=== PATIENT | female | born 1990 | race Caucasian/White ===

== ENCOUNTER → 2019-02-13 | Outpatient (CLI) | payer OTHER ==
--- NOTE | 2019-02-13 16:27 | CONS ---
CONSULTATION REASON FOR CONSULTATION: Difficulty in sleep initiation/insomnia. This is a 28-year-old female patient who moved to [place] approximately 9 months ago. Prior to that the patient used to live in [place]. She has a significant amount of stress and social issues, as the patient is currently and she has 2 kids left behind in [place], and she has currently moved in with another individual here in [place]. This has caused increased stress, anxiety and some degree of depression. For that reason, the patient is currently being seen at [facility] by Dr. Rupinder Berry. The patient was initially treated with BuSpar, and later the patient was switched to Paxil at a dose of 40 mg p.o. daily, and she is taking Vistaril. She has also CHRONIC ALLERGIES, for which she is on a combination of Claritin and Flonase. Over this past year or so the patient has been having more difficulty in sleep initiation. It takes her sometimes more than one hour to fall asleep. She goes to bed around 3 a.m. and she gets out of bed sometime between 8 and 1 p.m. Upon further questioning, the patient has significant variation in her sleep schedule. I came to find out that the patient works in a local Level in [place]. On Tuesday she goes to work at 6 p.m. and she gets out of work at 3 a.m. On regular days she works between 5 p.m. and 11 p.m. On regular days after she comes back home she does not fall asleep right away. She goes to bed late and it takes her sometimes up to an hour or so to fall asleep. Once asleep, she goes into a deep sleep and she has occasional sleepwalking and sleeptalking. She has also some occasional intercourse with her boyfriend in the middle of night, of which she has no recollection. Upon getting at 8:00, she feels very tired and sleepy and she will take more sleep; sometimes she will get up from bed at around 1 p.m. During the day she has problems with memory and concentration and feeling tired and fatigued and sleepy all the time. She is not sure if she has snoring; she has never been told that she snores. She occasionally grinds her teeth. She has increased panic, anxiety, stress and depression, as mentioned. No suicidal ideation. She averages from 4 hours up to 12 hours of sleep, depending on the day. Her current [place] score is 2. No substance abuse. She smokes weed, which she claims helps her to go to sleep. She smokes cigarettes. No alcoholism. No substance abuse. No headaches. No trauma to the head. No meningitis. No sleep paralysis. No hallucinations. She does have vivid dreams. No reported cataplexy. No weight gain or weight loss. PAST MEDICAL HISTORY: 1. Chronic anxiety/depression. 2. ENVIRONMENTAL ALLERGIES. PAST SURGICAL HISTORY: Negative. DRUG ALLERGIES: NOT KNOWN. She is ALLERGIC TO DUST MITES. OUTPATIENT MEDICATION: Outpatient medication list includes: 1. Paxil. 2. Vistaril. 3. Claritin. 4. Flonase. SOCIAL HISTORY: She smokes cigarettes and marijuana. She drinks alcohol socially. She works in a bar. No alcoholism. No substance abuse in the form of IVDA. FAMILY HISTORY: Negative for any form of sleep breathing disorder. REVIEW OF SYSTEMS: Fourteen-point review of systems was done. Positive findings were all mentioned above in the history of present illness. No symptoms of restlessness in the lower extremities. No nocturnal chest pain, shortness of breath or heartburn. No claustrophobia. No snoring. No waking up in the middle of night choking or gasping for air. No nocturia. The rest of the positive findings are mentioned above in the history of present illness. PHYSICAL EXAMINATION: VITAL SIGNS: BP is 115/58, pulse 74, respirations 16, temperature 98.3, saturation 98% on room air. Height is 5 feet 4 inches, weight 115 and BMI is 19.4. Neck size is 12 inches. GENERAL APPEARANCE: Calm, comfortable. HEAD: Atraumatic, normocephalic. NECK: Supple. There is no JVD. No goiter or neck masses. LUNGS: Clear to auscultation. HEART: Heart sounds are regular rate and rhythm. Normal S1, S2. No S3, S4. No murmurs. ABDOMEN: Soft, nontender. No organomegaly. EXTREMITIES: No edema. No cyanosis or clubbing. NEUROLOGIC: She is alert and oriented x3. No focal neurological deficits. PSYCHIATRIC: Positive for anxiety and depression. IMPRESSION: 1. Sleep-onset insomnia. It is clear to me that the patient's sleep problems are essentially related to her poor sleep hygiene pattern. She has a very erratic and irregular sleep schedule where she goes to bed at various times and she gets up between 8 a.m. and 1 p.m. Obviously her sleep hygiene measures are poor. She has an irregular sleep schedule. In addition, she has other comorbidities which have contributed to her sleepiness and insomnia which include anxiety/depression in addition to a significant amount of stress from psychosocial factors. Doubt sleep apnea. Doubt restless legs syndrome. She does have some occasional sleepwalking and -talking, probably exacerbated by the intake of SSRIs. 2. Chronic fatigue. 3. No major sleepiness. [place] score is 2. 4. Chronic anxiety. 5. Chronic depression. 6. ENVIRONMENTAL ALLERGIES. 7. Smoking marijuana and tobacco. PLAN: Discussed importance of maintaining good sleep hygiene measures. I note that the patient is working in a bar and she has a difficult schedule. During the weekdays she has to go to bed at a standard fixed time, which should be midnight, and she has to get up at 7 a.m. in the morning. I asked her to set an alarm which allows her to wake herself up in the morning. She should avoid taking any naps during the day. Obviously avoiding alcohol or any other form of [employer] stimulants such as caffeine or caffeinated products should be avoided. Avoid late dinner. She is already seeing a counselor and at same time she is seeing [facility] and she is being followed by Dr. Rupinder Berry regarding her chronic anxiety and depression. I think ultimately the choice of Paxil is exacerbating her sleepwalking and possibly some of her symptoms of sleeptalking. I am going to suggest possibly replacing this with another agent such as Wellbutrin, which may give her some increased energy and stimulation during the day. Xanax may also be used on an as-needed basis since her anxiety levels are quite high, and this may be a sleep-promoting agent. I will leave the final decision for medication adjustment to her psychiatrist. These are my suggestions for now. I counseled this patient regarding her sleep hygiene and her sleep schedule. I am going to see her in the future for followup. MMETHAN / LATANYAN: [phone] /
== END | disposition home or self-care (01) ==
LOC: SLEEP 14:06
PROVIDERS: ATTEND Internal Medicine Critical Care Medicine
DX: G47.00 Insomnia, unspecified (principal); F51.3 Sleepwalking [somnambulism]; F17.210 Nicotine dependence, cigarettes, uncomplicated; F41.9 Anxiety disorder, unspecified; F32.9 Major depressive disorder, single episode, unspecified; F12.90 Cannabis use, unspecified, uncomplicated; R53.83 Other fatigue
CPT/HCPCS: 99211

== ENCOUNTER 2021-05-28 09:35 | Emergency (ER) | payer OTHER ==
[2021-05-28 09:43] VITALS: RESP 18
[2021-05-28] MEDS ORDERED: SODIUM CHLORIDE 0.9% 2,000 ML IV STA (09:58)
[2021-05-28] MEDS ORDERED: ONDANSETRON 4 MG/2 ML VIAL IVP STA (09:58)
[2021-05-28 10:15] LABS: Basophils % (A) 0 %; Eosinophils # (A) 0.1 k/uL (0-0.7); Eosinophils % (A) 1 %; HCT 41.9 % (34.0-46.0); HGB 13.9 gm/dL (11.4-16.0); Lymphocytes # (A) 1.3 k/uL (1.0-4.8); Lymphocytes % (A) 15 %; MCH 31.3 pg (25.0-35.0); MCHC 33.2 g/dL (31.0-37.0); MCV 94.4 fL (80.0-100.0); Mean Platelet Volume 8.3; Monocytes # (A) 0.4 k/uL (0-1.0); Monocytes % (A) 4 %; Neutrophils # (A) 6.7 k/uL (1.3-7.7); Neutrophils % (A) 78 %; Platelet Count 253 k/uL (150-450); RBC 4.44 m/uL (3.80-5.40); RDW 13.1 % (11.5-15.5); WBC 8.6 k/uL (3.8-10.6)
[2021-05-28 10:24] LABS: ALT 13 U/L (4-34); AST 23 U/L (14-36); African American GFR (CKD) >90 (>60 ml/min/1.73 sqM); Albumin 4.9 g/dL (3.5-5.0); Alkaline Phosphatase 61 U/L (38-126); Amylase 154 U/L (30-110); Anion Gap 9 mmol/L; Blood Urea Nitrogen 10 mg/dL (7-17); Calcium 9.4 mg/dL (8.4-10.2); Carbon Dioxide 22 mmol/L (22-30); Chloride 106 mmol/L (98-107); Glucose 99 mg/dL (74-99); Lipase 288 U/L (23-300); Non-African American GFR(CKD) >90 (>60 ml/min/1.73 sqM); Potassium 4.2 mmol/L (3.5-5.1); Sodium 137 mmol/L (137-145); Total Bilirubin 0.9 mg/dL (0.2-1.3); Total Protein 8.1 g/dL (6.3-8.2)
--- NOTE | 2021-05-28 10:27 | ED ---
Nausea/Vomiting/Diarrhea HPI - General Chief complaint: Nausea/Vomiting/Diarrhea Stated complaint: Nausea, Dehydration Time Seen by Provider: 05/28/21 09:43 Source: patient, RN notes reviewed Mode of arrival: ambulatory Limitations: no limitations - History of Present Illness Initial comments: 31-year-old female presents emergency Department with chief complaint of nausea vomiting recent covid 19 dehydration. Patient states she is 11 days out of COVID-19. Patient states she feels very dehydrated, increasing nausea, decreased oral intake. She reports no fevers or chills currently mild residual cough no recent bodyaches no localized abdominal pain. - Related Data Home Medications Medication Instructions Recorded Confirmed QUEtiapine FUMARATE [SEROquel XR] 150 mg PO HS 05/28/21 05/28/21 Venlafaxine HCl [Effexor XR] 150 mg PO DAILY 05/28/21 05/28/21 guanFACINE HCL [guanFACINE HCL ER] 1 mg PO DAILY 05/28/21 05/28/21 hydrOXYzine pamoate [Vistaril] 50 mg PO QID PRN 05/28/21 05/28/21 Previous Rx's Medication Instructions Recorded Ondansetron Odt [Zofran Odt] 4 mg PO Q8HR PRN #10 tab 05/28/21 Allergies Allergy/AdvReac Type Severity Reaction Status Date / Time cephalexin [From Keflex] Allergy Rash/Hives Verified 05/28/21 10:40 sulfamethoxazole Allergy Rash/Hives Verified 05/28/21 10:40 [From Bactrim] trimethoprim [From Bactrim] Allergy Rash/Hives Verified 05/28/21 10:40 Review of Systems ROS Statement: Those systems with pertinent positive or pertinent negative responses have been documented in the HPI. ROS Other: All systems not noted in ROS Statement are negative. Past Medical History Past Medical History: No Reported History History of Any Multi-Drug Resistant Organisms: None Reported Additional Past Surgical History / Comment(s): B carpal tunnel sx, oral sx Past Psychological History: Anxiety, Bipolar, Depression, PTSD Smoking Status: Former smoker Past Alcohol Use History: Occasional Past Drug Use History: Marijuana General Exam Limitations: no limitations General appearance: alert, in no apparent distress Head exam: Present: atraumatic, normocephalic, normal inspection Eye exam: Present: normal appearance, PERRL, EOMI. Absent: scleral icterus, conjunctival injection, periorbital swelling ENT exam: Present: normal exam, normal oropharynx, mucous membranes moist Neck exam: Present: normal inspection, full ROM. Absent: tenderness, meningismus, lymphadenopathy Respiratory exam: Present: normal lung sounds bilaterally. Absent: respiratory distress, wheezes, rales, rhonchi, stridor Cardiovascular Exam: Present: regular rate, normal rhythm, normal heart sounds. Absent: systolic murmur, diastolic murmur, rubs, gallop, clicks GI/Abdominal exam: Present: soft, normal bowel sounds. Absent: distended, tenderness, guarding, rebound, rigid Course Vital Signs 05/28/21 09:39 Temperature 98 F Pulse Rate 102 H Respiratory 18 Rate Blood Pressure 106/68 O2 Sat by Pulse 98 Oximetry Medical Decision Making - Medical Decision Making Patient presented for dehydration with COVID-19. Patient was hydrated, given antiemetics is greatly improved be discharged stable condition - Lab Data Result diagrams: 05/28/21 10:00 05/28/21 10:00 Lab Results 05/28/21 05/28/21 05/28/21 Range/Units 10:00 10:00 10:57 WBC 8.6 (3.8-10.6) k/uL RBC 4.44 (3.80-5.40) m/uL Hgb 13.9 (11.4-16.0) gm/dL Hct 41.9 (34.0-46.0) % MCV 94.4 (80.0-100.0) fL MCH 31.3 (25.0-35.0) pg MCHC 33.2 (31.0-37.0) g/dL RDW 13.1 (11.5-15.5) % Plt Count 253 (150-450) k/uL MPV 8.3 Neutrophils % 78 % Lymphocytes % 15 % Monocytes % 4 % Eosinophils % 1 % Basophils % 0 % Neutrophils # 6.7 (1.3-7.7) k/uL Lymphocytes # 1.3 (1.0-4.8) k/uL Monocytes # 0.4 (0-1.0) k/uL Eosinophils # 0.1 (0-0.7) k/uL Basophils # 0.0 (0-0.2) k/uL Sodium 137 (137-145) mmol/L Potassium 4.2 (3.5-5.1) mmol/L Chloride 106 (98-107) mmol/L Carbon Dioxide 22 (22-30) mmol/L Anion Gap 9 mmol/L BUN 10 (7-17) mg/dL Creatinine 0.55 (0.52-1.04) mg/dL Est GFR (CKD-EPI)AfAm >90 (>60 ml/min/1.73 sqM) Est GFR (CKD-EPI)NonAf >90 (>60 ml/min/1.73 sqM) Glucose 99 (74-99) mg/dL Calcium 9.4 (8.4-10.2) mg/dL Total Bilirubin 0.9 (0.2-1.3) mg/dL AST 23 (14-36) U/L ALT 13 (4-34) U/L Alkaline Phosphatase 61 (38-126) U/L Total Protein 8.1 (6.3-8.2) g/dL Albumin 4.9 (3.5-5.0) g/dL Amylase 154 H (30-110) U/L Lipase 288 (23-300) U/L Urine Color Yellow Urine Appearance Clear (Clear) Urine pH 7.5 (5.0-8.0) Ur Specific [place] 1.019 (1.001-1.035) Urine Protein 1+ H (Negative) Urine Glucose (UA) Negative (Negative) Urine Ketones Negative (Negative) Urine Blood Negative (Negative) Urine Nitrite Negative (Negative) Urine Bilirubin Negative (Negative) Urine Urobilinogen 2.0 (<2.0) mg/dL Ur Leukocyte Esterase Negative (Negative) Urine WBC 1 (0-5) /hpf Ur Squamous Epith Cells 3 (0-4) /hpf Urine Bacteria Rare H (None) /hpf Urine Mucus Occasional H (None) /hpf Urine HCG, Qual (Not Detectd) 05/28/21 Range/Units 10:57 WBC (3.8-10.6) k/uL RBC (3.80-5.40) m/uL Hgb (11.4-16.0) gm/dL Hct (34.0-46.0) % MCV (80.0-100.0) fL MCH (25.0-35.0) pg MCHC (31.0-37.0) g/dL RDW (11.5-15.5) % Plt Count (150-450) k/uL MPV Neutrophils % % Lymphocytes % % Monocytes % % Eosinophils % % Basophils % % Neutrophils # (1.3-7.7) k/uL Lymphocytes # (1.0-4.8) k/uL Monocytes # (0-1.0) k/uL Eosinophils # (0-0.7) k/uL Basophils # (0-0.2) k/uL Sodium (137-145) mmol/L Potassium (3.5-5.1) mmol/L Chloride (98-107) mmol/L Carbon Dioxide (22-30) mmol/L Anion Gap mmol/L BUN (7-17) mg/dL Creatinine (0.52-1.04) mg/dL Est GFR (CKD-EPI)AfAm (>60 ml/min/1.73 sqM) Est GFR (CKD-EPI)NonAf (>60 ml/min/1.73 sqM) Glucose (74-99) mg/dL Calcium (8.4-10.2) mg/dL Total Bilirubin (0.2-1.3) mg/dL AST (14-36) U/L ALT (4-34) U/L Alkaline Phosphatase (38-126) U/L Total Protein (6.3-8.2) g/dL Albumin (3.5-5.0) g/dL Amylase (30-110) U/L Lipase (23-300) U/L Urine Color Urine Appearance (Clear) Urine pH (5.0-8.0) Ur Specific [place] (1.001-1.035) Urine Protein (Negative) Urine Glucose (UA) (Negative) Urine Ketones (Negative) Urine Blood (Negative) Urine Nitrite (Negative) Urine Bilirubin (Negative) Urine Urobilinogen (<2.0) mg/dL Ur Leukocyte Esterase (Negative) Urine WBC (0-5) /hpf Ur Squamous Epith Cells (0-4) /hpf Urine Bacteria (None) /hpf Urine Mucus (None) /hpf Urine HCG, Qual Not Detected (Not Detectd) Disposition Clinical Impression: Dehydration, COVID-19 Disposition: HOME SELF-CARE Condition: Stable Instructions (If sedation given, give patient instructions): Dehydration (ED) Additional Instructions: Please return to the Emergency Department if symptoms worsen or any other concerns. Prescriptions: Ondansetron Odt [Zofran Odt] 4 mg PO Q8HR PRN #10 tab PRN Reason: Nausea Is patient prescribed a controlled substance at d/c from ED?: No Referrals: Liliana Swanson MD [Primary Care Provider] - 1-2 days Time of Disposition: 12:09
[2021-05-28 11:17] LABS: Appearance,Urine Clear (Clear); Bacteria,Urine Rare /hpf; Bilirubin,Urine Negative (Negative); Blood,Urine Negative (Negative); Color,Urine Yellow; Glucose,Urine (UA) Negative (Negative); Ketones,Urine Negative (Negative); Leukocyte Esterase,Urine Negative (Negative); Mucus,Urine Occasional /hpf; Nitrite,Urine Negative (Negative); PH, Urine 7.5 (5.0-8.0); Protein,Urine 1+ (Negative); Specific Gravity,Urine 1.019 (1.001-1.035); Squamous Epithelial Cell,Urine 3 /hpf (0-4); WBC,Urine 1 /hpf (0-5)
[2021-05-28] MEDS ORDERED: METOCLOPRAMIDE 5 MG/ML 2 ML VIAL IVP STA (12:07)
[2021-05-28 12:22] VITALS: BP 110/70; PULSE 98; TEMP 97.1
== END 2021-05-28 12:20 | disposition home or self-care (01) ==
LOC: EC 09:35
DX: U07.1 COVID-19 (principal); E86.0 Dehydration; F41.9 Anxiety disorder, unspecified; F31.9 Bipolar disorder, unspecified; F43.12 Post-traumatic stress disorder, chronic; F12.90 Cannabis use, unspecified, uncomplicated; Z88.1 Allergy status to other antibiotic agents; Z88.2 Allergy status to sulfonamides; Z87.891 Personal history of nicotine dependence
CPT/HCPCS: 99284; 96374; 96375; 96361 ×2; 36415; 80053; 82150; 83690; 85025; 81001; 81025; J2765; J2405

== ENCOUNTER 2022-09-09 07:33 | Day surgery (SDC) | payer OTHER ==
[~2022-09-09 07:33] MED LIST: LACTATED RINGERS 1,000 ML IV SCH
[2022-09-09 07:53] VITALS: TEMP 97.5
[2022-09-09 08:09] LABS: Glucose,Whole Blood 95 mg/dL (70-110)
[2022-09-09] MEDS ORDERED: PROPOFOL 10 MG/ML 20 ML VIAL IV ONE (08:14)
--- NOTE | 2022-09-09 08:15 | P.GSHP ---
History of Present Illness H&P Date: 09/09/22 Chief Complaint: Rectal bleeding Is a 32-year-old female is a complete of rectal bleeding. Patient presents today for colonoscopy. Past Medical History Past Medical History: No Reported History History of Any Multi-Drug Resistant Organisms: None Reported Additional Past Surgical History / Comment(s): B carpal tunnel sx, oral sx Past Anesthesia/Blood Transfusion Reactions: No Reported Reaction Additional Past Anesthesia/Blood Transfusion Reaction / Comment(s): none Smoking Status: Current every day smoker - Past Family History Mother Family Medical History: No Reported History Father Family Medical History: Cancer Additional Family Medical History / Comment(s): kidney cancer Medications and Allergies Home Medications Medication Instructions Recorded Confirmed Type hydrOXYzine pamoate [Vistaril] 50 mg PO DAILY PRN 05/28/21 09/06/22 History Fluticasone Nasal [place] [Flonase 1 spray EA NOSTRIL DAILY PRN 09/06/22 09/09/22 History Nasal [place]] Loratadine [Claritin] 10 mg PO DAILY PRN 09/06/22 09/06/22 History Allergies Allergy/AdvReac Type Severity Reaction Status Date / Time cephalexin [From Keflex] Allergy Rash/Hives Verified 09/09/22 07:52 sulfamethoxazole Allergy Rash/Hives Verified 09/09/22 07:52 [From Bactrim] trimethoprim [From Bactrim] Allergy Rash/Hives Verified 09/09/22 07:52 Surgical - Exam Vital Signs Temp Pulse Resp BP Pulse Ox 97.5 F L 84 18 103/51 97 09/09/22 07:50 09/09/22 07:50 09/09/22 07:50 09/09/22 07:50 09/09/22 07:50 - General well developed, well nourished, no distress - Eyes PERRL - ENT normal pinna - Neck no masses - Respiratory normal expansion - Cardiovascular Rhythm: regular - Abdomen Abdomen: soft, non tender Assessment and Plan Assessment: Rectal bleeding. We'll perform colonoscopy.
--- NOTE | 2022-09-09 08:31 | P.OP ---
Date of Procedure: 09/09/22 Preoperative Diagnosis: Rectal bleeding Postoperative Diagnosis: External hemorrhoids Sigmoid colon polyp Procedure(s) Performed: Colonoscopy Anesthesia: MAC Surgeon: Richard Ken Pathology: other Condition: stable Disposition: PACU Description of Procedure: The patient's placed on the endoscopy table in the lateral position. She received IV sedation. Digital rectal exam was performed. There were external hemorrhoids noted. Flexible colonoscope was then placed patient anus and passed throughout the entire colon. The ileocecal valve was visually is. The cecum appeared normal. Ascending and transverse colon appeared normal. The descending colon appeared normal. In the sigmoid colon there was a polyp seen this removed with the snare. Scope was brought back the rectum this appeared normal. Scope withdrawn for patient. There is no unsteady GI bleed. Presumed patient may been bleeding from hemorrhoids.
[2022-09-09 08:36] VITALS: RESP 16
[2022-09-09 08:49] VITALS: BP 95/65; PULSE 61
== END 2022-09-09 09:27 | disposition home or self-care (01) ==
LOC: ORWHC2ENDO 07:33
PROVIDERS: ATTEND Surgery
DX: D12.5 Benign neoplasm of sigmoid colon (principal); K64.4 Residual hemorrhoidal skin tags; K62.5 Hemorrhage of anus and rectum; K21.9 Gastro-esophageal reflux disease without esophagitis; F12.90 Cannabis use, unspecified, uncomplicated; F17.200 Nicotine dependence, unspecified, uncomplicated; Z80.51 Family history of malignant neoplasm of kidney; Z98.890 Other specified postprocedural states; Z79.811 Long term (current) use of aromatase inhibitors; Z79.2 Long term (current) use of antibiotics; Z88.1 Allergy status to other antibiotic agents; Z88.2 Allergy status to sulfonamides; Z79.899 Other long term (current) drug therapy
CPT/HCPCS: 81025; 88305; 45385; J2704